=== PATIENT | female | born 1940 | race Caucasian/White ===

== ENCOUNTER 2025-03-02 06:22 | Emergency (ER) | payer MEDICARE, SELFPAY ==
[2025-03-02 06:23] VITALS: BP 175/48; BMI 28.4
--- NOTE | 2025-03-02 06:45 | ED.GENMED ---
History of Present Illness
General
Chief Complaint: Fall
Time Seen by Provider: 03/02/25 06:26
History of Present Illness
History of Present Illness:
84-year-old female with history of hypertension presents to the emergency department for evaluation of mechanical fall downstairs this morning. Lost her balance attempting to walk down the stairs, did strike her head. No reported LOC. Currently
complaining of only a headache. Not on blood thinners or aspirin.
Review of Systems
Review of Systems
Allergies reviewed?: Yes
All Other Systems: ROS reviewed and negative except as documented in HPI and ROS
Phy Exam
Physical Exam
Physical Exam:
GEN: Well appearing, NAD, WDWN
HEENT: Moderate hematoma to the midline parietal scalp, no crepitus or open wounds, oral mucosa moist, no scleral icterus, no nasal congestion
Cardiac: Regular rate and rhythm, no murmur, lungs clear to auscultation bilaterally
Lung: No respiratory distress, no tachypnea
MSK: Ecchymosis and abrasions to the right superior shoulder, moderate joint swelling noted, normal range of motion about the joint with no bony tenderness. No shortening or external rotation of lower extremities bilaterally, bilateral hip and knee
range of motion normal, pelvis stable
Skin: Good color, no pallor or jaundice, no rashes
Neuro: AO x3; CN II-XII grossly intact. BUE strength 5/5 in all alfredo, sensation intact and symmetric. BLE strength 5/5 in all alfredo, sensation intact and symmetric
Psych: Calm, cooperative
Course
Orders/Labs/Results
Orders:
Orders
03/02/25 06:30
CT Head W/o Iv Contrast Urgent
Comment:
Reason For Exam: fall hitting head
03/02/25 06:44
CR Shoulder, Trauma - Right Urgent
Reason For Exam: fall injury
Vital Signs
Initial and Last Documented VS:
Initial Vital Signs
Temp Pulse Resp BP Pulse Ox
97.5 F 66 16 175/48 99
03/02/25 06:23 03/02/25 06:23 03/02/25 06:23 03/02/25 06:23 03/02/25 06:23
Last Documented Vital Signs
Temp Pulse Resp BP Pulse Ox
97.5 F 64 16 175/53 99
03/02/25 06:23 03/02/25 06:55 03/02/25 06:55 03/02/25 06:55 03/02/25 06:55
MDM/Problems Addressed
MDM/Problems Addressed:
CT of the head shows no acute traumatic injuries, right shoulder x-rays independently interpreted by me show degenerative change with no acute abnormality. Discharged in stable condition, blood pressure did gradually downtrend in the ED however she
is advised to have this followed up within 1 week if possible
*Pulse Oximetry
SaO2: 99
Oxygen Mode of Delivery: Room air
Patient hypoxic: no
*Critical Care Note
Total Time (30-74mins, 75-104mins- exclusive of procedures): Not Applicable
ED Attending Note
-
Portions of this chart may have been created with voice recognition software.� Occasional wrong word or��sound alike� substitutions may have occurred due to the inherent limitations of voice recognition software.
Discharge Plan
Departure
Patient Disposition: Home (Routine Discharge)
Date of Disposition: 03/02/25
Time of Disposition: 07:41
Patient with high blood pressure during this ER visit?: Yes
Discharge Problem:
Closed head injury, Contusion of right shoulder
Instructions: Head Injury in Adults (DC)
Interventions
Interventions:
*General Assessment Last Done: 03/02/25 06:23
*Neglect/Abuse Screening Last Done: 03/02/25 06:23
*ED COVID-19 Vaccine History Last Done: 03/02/25 06:23
*ED Influenza Vaccine History Last Done: 03/02/25 06:23
[facility] Risk Assessment Tool Last Done: 03/02/25 06:28
*Risk Screen - Suicide (C-SSRS) Last Done: 03/02/25 06:23
*Nursing Disposition Last Done: 03/02/25 08:22
ED-Musculoskeletal Assessment Last Done: 03/02/25 06:48
ED- Neurological Assessment Last Done: 03/02/25 06:48
ED-Skin Assessment Last Done: 03/02/25 06:48
Discharge Date and Time
Discharge Date/Time: 03/02/25 08:23
Print Language: FRENCH
[2025-03-02 06:55] VITALS: BP 175/53
== END 2025-03-02 08:23 | disposition home or self-care (01) ==
LOC: EMR 06:22
PROVIDERS: EMERGENCY PHYSICIAN Emergency Medicine
DX: S09.90XA Unspecified injury of head, initial encounter (principal); S40.011A Contusion of right shoulder, initial encounter; W10.9XXA Fall (on) (from) unspecified stairs and steps, initial encounter; Y93.01 Activity, walking, marching and hiking; Y92.009 Unspecified place in unspecified non-institutional (private) residence as the place of occurrence of the external cause; M19.011 Primary osteoarthritis, right shoulder; I10 Essential (primary) hypertension
CPT/HCPCS: 99284; 70450; 73030